=== PATIENT | male | born 1975 | race Caucasian/White ===

== ENCOUNTER 2025-01-16 12:34 | Emergency (ER) | payer SELFPAY ==
[2025-01-16 12:35] VITALS: BP 140/94; PULSE 100; RESP 18; TEMP 36.7; O2SAT 100
[2025-01-16] MEDS: SULFAMETHOXAZOLE/TRIMETHOPRIM 800/160 MG DS TABLET 1 TAB PO (12:54)
[2025-01-16] MEDS: LIDOCAINE 1% LOCAL INJ 10 ML VIAL 20 ML INFILTRATE (12:54)
--- NOTE | 2025-01-16 13:32 | ED.UPPEXIN ---
HPI - Extremity Injury (Upper) General Chief Complaint: Extremity Injury, Upper Stated Complaint: finger infection Time Seen by Provider: 01/16/25 12:38 Source: patient Mode of arrival: ambulatory Limitations: no limitations History of Present Illness HPI narrative: This is a 50-year-old male, who denies significant past medical history, presents emergency department complaining of moderate dull pain, swelling and drainage of pus from the right middle finger. He states he was clipping his fingers 4-5 days ago and it appeared to become infected. He has noticed spreading redness up the finger that has not yet reached the hand. He denies fevers, loss of sensation in the finger, redness of the hand. he has no other complaints at this time. Related Data Allergies Allergy/AdvReac Type Severity Reaction Status Date / Time No Known Allergies Allergy Verified 01/16/25 12:36 Review of Systems Review of Systems: All systems reviewed & are unremarkable except as noted in HPI and below (HPI) PMFSH Past Medical History Medical History No significant past medical history Surgical History Surgical History No significant past surgical history Social History Social History Smoking status: Never smoker Alcohol intake: current Substance use: never Exam Narrative: GENERAL: Well-developed, well-nourished, and in no acute distress. HEAD: Normocephalic, atraumatic. EYES: PERRLA and EOMI. CHEST: Clear to auscultation. No respiratory distress. No wheezes rales or rhonchi HEART: Regular rate and rhythm. No murmur heard. Normal peripheral pulses. EXTREMITIES: There is erythema, swelling and crusted tissue of the right 3rd finger, worse at the radial aspect the nail bed. There is a small amount of purulent drainage and bleeding noted. Capillary refill less than 2 seconds. Normal range of motion of all extremities. No edema. SKIN: Skin otherwise warm, dry, no rash. NEURO: Alert and oriented x3. No focal deficit. Moving all 4 limbs spontaneously PSYCH: Normal mood and affect. Course Course Emergency Course: 13:34 - The paronychia was incised and drained. Please see procedure note. The patient was given an initial dose of Bactrim. He states he does not currently have a job in believes he will not be able to afford his medications. Will discharge with a prescription for Bactrim and recommendation for Sitz baths and primary care follow-up. I discussed the findings and recommendations with the patient. Discussed return and emergency precautions including signs/symptoms of antibiotic failure and neurovascular compromise. The patient voiced understanding and agreement with the plan. All questions answered to his satisfaction. Vital Signs Vital signs: Vital Signs Temperature 98.1 F 01/16/25 12:35 Pulse Rate 100 01/16/25 12:35 Respiratory Rate 18 01/16/25 12:35 Blood Pressure 140/94 H 01/16/25 12:35 Pulse Oximetry 100 01/16/25 12:35 Oxygen Delivery Room Air 01/16/25 12:35 Temperature 98.4 F 01/16/25 14:20 Pulse Rate 95 01/16/25 14:20 Respiratory Rate 18 01/16/25 14:20 Blood Pressure 151/90 H 01/16/25 14:20 Pulse Oximetry 96 01/16/25 14:20 Oxygen Delivery Room Air 01/16/25 14:20 Procedures Abscess I/D hand: Date of Incision: 01/16/25 Time of Incision: 13:25 Side (if applicable): right (3rd finger) Sedation/analgesia: none Local Anesthetic: lidocaine 1% Amount of anesthesia used (mL): 8 (digital block) Technique: incised with #11 blade Amount of fluid expressed (mL): 3 Irrigation: No Packing used?: none I&D Results: Pus and Blood Complications: other (None) MDM - Extremity Injury (Upper) MDM Narrative Medical decision making narrative: Plan: Pain control, incision and drainage, or oral antibiotics, primary care follow-up Differential Diagnosis Differential diagnosis: Likely other ( paronychia, cellulitis, other) Discharge Plan Discharge Clinical Impression: Paronychia, Pain of right middle finger Cellulitis Qualifiers: Site of cellulitis: extremity Site of cellulitis of extremity: finger Laterality: right Qualified Code(s): L03.011 - Cellulitis of right finger Patient Disposition: Home Condition: Stable Instructions: Antibiotic Form, Paronychia (ED) Additional Instructions: You were seen in the emergency department. The paronychia (abscess of the finger) was incised and drained. I recommend a course of oral antibiotics for cellulitis. I recommend following up with a primary care doctor. If you develop rapidly spreading redness increasing pain and fevers, the finger. Blue/cold, or if you have other emergent concerns for life, limb, or eyesight, return to the emergency department. Patient Language: Panamanian Prescriptions: New sulfamethoxazole-trimethoprim [Bactrim DS] 800-160 mg tablet 1 tablet PO Q12H 7 Days Qty: 14 0RF Follow-up/Referrals: Tyler Maxwell DO [Physician] - 1 Week Time of Disposition: 13:35
[2025-01-16 14:15] VITALS: BP 127/97; PULSE 89; RESP 16; TEMP 36.6; O2SAT 95
[2025-01-16 14:20] VITALS: BP 151/90; PULSE 95; RESP 18; TEMP 36.9; O2SAT 96
== END 2025-01-16 14:20 | disposition home or self-care (01) ==
PROVIDERS: Emergency Provider Preventive Medicine Aerospace Medicine; Referring Provider Internal Medicine
DX: L03.011 Cellulitis of right finger (principal)
CPT/HCPCS: 26010; 99283; A9270; J2003